=== PATIENT | female | born 1985 | race Hispanic/Latino ===

== ENCOUNTER 2023-04-11 12:36 | Emergency (ER) | payer OTHER ==
[~2023-04-11] VITALS: Ht 154.9 cm; Wt 68.0 kg
[~2023-04-11 12:36] MED LIST: LORTAB 7.57.5 MG PO
[2023-04-11] MEDS ORDERED: PREDNISONE10 MG PO (14:49)
[2023-04-11] MEDS ORDERED: METHOCARBAMOL500 MG PO (14:49)
[2023-04-11] MEDS ORDERED: NAPROXEN500 MG PO (14:49)
[2023-04-11 15:47] VITALS: BP 165/86
== END 2023-04-11 16:00 | disposition home or self-care (01) | DRG 563 ==
LOC: ED 12:36
DX: S46.911A Strain of unspecified muscle, fascia and tendon at shoulder and upper arm level, right arm, initial encounter (principal); W55.22XA Struck by cow, initial encounter; Y92.79 Other farm location as the place of occurrence of the external cause; Y99.0 Civilian activity done for income or pay